=== PATIENT | female | born 1980 | race American Indian/Alaskan Native ===

== ENCOUNTER 2018-01-14 00:25 | Day surgery (SDC) | payer OTHER ==
[~2018-01-14 00:25] MED LIST: ABAT250V; BUME2 PO; CEPH500 PO; CLIN300 PO; FURO40 PO; HYDACE5 PO; HYDCHL25 PO; METO2.5 PO; Micro-K10 MEQ PO; OLME20 PO; RXCLIN PO; SILD25T PO; SULTRIDS PO
== END 2018-01-14 15:57 | disposition home or self-care (01) ==
LOC: WOUND 00:25
PROC: 0JBP0ZZ Excision of Left Lower Leg Subcutaneous Tissue and Fascia, Open Approach (ICD-10-PCS; principal; 2018-01-14)
DX: Z48.00 Encounter for change or removal of nonsurgical wound dressing (principal); L97.221 Non-pressure chronic ulcer of left calf limited to breakdown of skin; S81.809D Unspecified open wound, unspecified lower leg, subsequent encounter; R60.9 Edema, unspecified; I27.20 Pulmonary hypertension, unspecified; E55.9 Vitamin D deficiency, unspecified; I13.0 Hypertensive heart and chronic kidney disease with heart failure and stage 1 through stage 4 chronic kidney disease, or unspecified chronic kidney disease; N18.3 Chronic kidney disease, stage 3 (moderate); I50.9 Heart failure, unspecified; D63.1 Anemia in chronic kidney disease; G60.9 Hereditary and idiopathic neuropathy, unspecified; F17.200 Nicotine dependence, unspecified, uncomplicated; Z88.0 Allergy status to penicillin
CPT/HCPCS: 87070; 87205; G0463

== ENCOUNTER 2018-01-20 00:53 | Day surgery (SDC) | payer OTHER | END 2018-01-20 22:58 | disposition home or self-care (01) | LOC: WOUND 00:53 | PROC: 0HBLXZZ Excision of Left Lower Leg Skin, External Approach (ICD-10-PCS; principal; 2018-01-20) | DX: L97.221 Non-pressure chronic ulcer of left calf limited to breakdown of skin (principal); F17.210 Nicotine dependence, cigarettes, uncomplicated; I13.0 Hypertensive heart and chronic kidney disease with heart failure and stage 1 through stage 4 chronic kidney disease, or unspecified chronic kidney disease; N18.3 Chronic kidney disease, stage 3 (moderate); I50.9 Heart failure, unspecified; I27.20 Pulmonary hypertension, unspecified; E55.9 Vitamin D deficiency, unspecified; D63.1 Anemia in chronic kidney disease | CPT/HCPCS: G0463 ==

== ENCOUNTER 2018-02-01 15:00 | Day surgery (SDC) | payer OTHER | END 2018-02-01 22:50 | disposition home or self-care (01) | LOC: WOUND 15:00 | PROC: 0HBLXZZ Excision of Left Lower Leg Skin, External Approach (ICD-10-PCS; principal; 2018-02-01) | DX: S81.802A Unspecified open wound, left lower leg, initial encounter (principal); I13.0 Hypertensive heart and chronic kidney disease with heart failure and stage 1 through stage 4 chronic kidney disease, or unspecified chronic kidney disease; I50.9 Heart failure, unspecified; R60.9 Edema, unspecified; R06.02 Shortness of breath; N18.3 Chronic kidney disease, stage 3 (moderate); D63.1 Anemia in chronic kidney disease; G60.9 Hereditary and idiopathic neuropathy, unspecified; E87.70 Fluid overload, unspecified; F17.210 Nicotine dependence, cigarettes, uncomplicated | CPT/HCPCS: G0463 ==

== ENCOUNTER 2018-02-10 15:18 | Day surgery (SDC) | payer OTHER | END 2018-02-10 22:47 | disposition home or self-care (01) | LOC: WOUND 15:18 | PROC: 2W1RX6Z Compression of Left Lower Leg using Pressure Dressing (ICD-10-PCS; principal; 2018-02-10) | DX: L97.822 Non-pressure chronic ulcer of other part of left lower leg with fat layer exposed (principal); I87.2 Venous insufficiency (chronic) (peripheral); I27.20 Pulmonary hypertension, unspecified; R60.9 Edema, unspecified; R06.02 Shortness of breath; I12.9 Hypertensive chronic kidney disease with stage 1 through stage 4 chronic kidney disease, or unspecified chronic kidney disease; N18.3 Chronic kidney disease, stage 3 (moderate); D63.1 Anemia in chronic kidney disease; E87.70 Fluid overload, unspecified ==

== ENCOUNTER 2018-02-17 15:05 | Day surgery (SDC) | payer OTHER | END 2018-02-17 16:25 | disposition home or self-care (01) | LOC: WOUND 15:05 | PROC: 2W1RX6Z Compression of Left Lower Leg using Pressure Dressing (ICD-10-PCS; principal; 2018-02-17) | DX: L97.822 Non-pressure chronic ulcer of other part of left lower leg with fat layer exposed (principal); S81.809A Unspecified open wound, unspecified lower leg, initial encounter; I13.0 Hypertensive heart and chronic kidney disease with heart failure and stage 1 through stage 4 chronic kidney disease, or unspecified chronic kidney disease; N18.3 Chronic kidney disease, stage 3 (moderate); I50.9 Heart failure, unspecified; I27.20 Pulmonary hypertension, unspecified; R60.9 Edema, unspecified; R06.02 Shortness of breath; E55.9 Vitamin D deficiency, unspecified; Z72.0 Tobacco use; D63.1 Anemia in chronic kidney disease; E87.70 Fluid overload, unspecified | CPT/HCPCS: G0463 ==

== ENCOUNTER 2018-02-24 15:20 | Day surgery (SDC) | payer OTHER | END 2018-02-24 23:21 | disposition home or self-care (01) | LOC: WOUND 15:20 | PROC: 2W1RX6Z Compression of Left Lower Leg using Pressure Dressing (ICD-10-PCS; principal; 2018-02-24) | PROC: 0HBLXZZ Excision of Left Lower Leg Skin, External Approach (ICD-10-PCS; principal; 2018-02-24) | DX: L97.822 Non-pressure chronic ulcer of other part of left lower leg with fat layer exposed (principal); I13.0 Hypertensive heart and chronic kidney disease with heart failure and stage 1 through stage 4 chronic kidney disease, or unspecified chronic kidney disease; I50.9 Heart failure, unspecified; I27.20 Pulmonary hypertension, unspecified; R60.9 Edema, unspecified; R06.02 Shortness of breath; E55.9 Vitamin D deficiency, unspecified; Z72.0 Tobacco use; N18.3 Chronic kidney disease, stage 3 (moderate); D63.1 Anemia in chronic kidney disease | CPT/HCPCS: G0463 ==

== ENCOUNTER 2018-03-03 00:14 | Day surgery (SDC) | payer OTHER | END 2018-03-03 23:00 | disposition home or self-care (01) | LOC: WOUND 00:14 | PROC: 0HBLXZZ Excision of Left Lower Leg Skin, External Approach (ICD-10-PCS; principal; 2018-03-03) | DX: L97.222 Non-pressure chronic ulcer of left calf with fat layer exposed (principal); I13.0 Hypertensive heart and chronic kidney disease with heart failure and stage 1 through stage 4 chronic kidney disease, or unspecified chronic kidney disease; N18.3 Chronic kidney disease, stage 3 (moderate); R60.9 Edema, unspecified; I27.20 Pulmonary hypertension, unspecified; D63.1 Anemia in chronic kidney disease; I50.9 Heart failure, unspecified | CPT/HCPCS: G0463 ==

== ENCOUNTER 2018-03-10 14:59 | Day surgery (SDC) | payer OTHER | END 2018-03-10 23:13 | disposition home or self-care (01) | LOC: WOUND 14:59 | PROC: 2W1MX6Z Compression of Left Lower Extremity using Pressure Dressing (ICD-10-PCS; principal; 2018-03-10) | DX: L97.222 Non-pressure chronic ulcer of left calf with fat layer exposed (principal); S81.809A Unspecified open wound, unspecified lower leg, initial encounter; I13.0 Hypertensive heart and chronic kidney disease with heart failure and stage 1 through stage 4 chronic kidney disease, or unspecified chronic kidney disease; N18.9 Chronic kidney disease, unspecified; I27.20 Pulmonary hypertension, unspecified; R60.9 Edema, unspecified; R06.02 Shortness of breath; E55.9 Vitamin D deficiency, unspecified; Z72.0 Tobacco use; I50.9 Heart failure, unspecified; D63.1 Anemia in chronic kidney disease | CPT/HCPCS: G0463 ==

== ENCOUNTER 2018-03-17 15:03 | Day surgery (SDC) | payer OTHER | END 2018-03-17 16:27 | disposition home or self-care (01) | LOC: WOUND 15:03 | PROC: 2W1RX6Z Compression of Left Lower Leg using Pressure Dressing (ICD-10-PCS; principal; 2018-03-17) | DX: L97.222 Non-pressure chronic ulcer of left calf with fat layer exposed (principal); I13.0 Hypertensive heart and chronic kidney disease with heart failure and stage 1 through stage 4 chronic kidney disease, or unspecified chronic kidney disease; N18.9 Chronic kidney disease, unspecified; I50.9 Heart failure, unspecified; F17.210 Nicotine dependence, cigarettes, uncomplicated | CPT/HCPCS: G0463 ==

== ENCOUNTER 2018-03-24 15:00 | Day surgery (SDC) | payer OTHER | END 2018-03-24 23:03 | disposition home or self-care (01) | LOC: WOUND 15:00 | PROC: 2W1RX6Z Compression of Left Lower Leg using Pressure Dressing (ICD-10-PCS; principal; 2018-03-24) | DX: S81.802A Unspecified open wound, left lower leg, initial encounter (principal); F17.210 Nicotine dependence, cigarettes, uncomplicated; I13.0 Hypertensive heart and chronic kidney disease with heart failure and stage 1 through stage 4 chronic kidney disease, or unspecified chronic kidney disease; I50.9 Heart failure, unspecified; I27.20 Pulmonary hypertension, unspecified; D63.1 Anemia in chronic kidney disease; N18.3 Chronic kidney disease, stage 3 (moderate) | CPT/HCPCS: G0463 ==

== ENCOUNTER 2018-03-30 07:53 | Day surgery (SDC) | payer OTHER | END 2018-03-30 22:55 | disposition home or self-care (01) | LOC: WOUND 07:53 | PROC: 2W1RX6Z Compression of Left Lower Leg using Pressure Dressing (ICD-10-PCS; principal; 2018-03-30) | DX: L97.222 Non-pressure chronic ulcer of left calf with fat layer exposed (principal); I13.0 Hypertensive heart and chronic kidney disease with heart failure and stage 1 through stage 4 chronic kidney disease, or unspecified chronic kidney disease; I50.9 Heart failure, unspecified; N18.3 Chronic kidney disease, stage 3 (moderate); D63.1 Anemia in chronic kidney disease; I27.20 Pulmonary hypertension, unspecified; E87.70 Fluid overload, unspecified | CPT/HCPCS: G0463 ==

== ENCOUNTER 2018-04-07 15:06 | Day surgery (SDC) | payer OTHER | END 2018-04-07 16:32 | disposition home or self-care (01) | LOC: WOUND 15:06 | PROC: 2W1RX6Z Compression of Left Lower Leg using Pressure Dressing (ICD-10-PCS; principal; 2018-04-07) | DX: S81.802A Unspecified open wound, left lower leg, initial encounter (principal); F17.210 Nicotine dependence, cigarettes, uncomplicated; I13.0 Hypertensive heart and chronic kidney disease with heart failure and stage 1 through stage 4 chronic kidney disease, or unspecified chronic kidney disease; I50.9 Heart failure, unspecified; I27.20 Pulmonary hypertension, unspecified; R60.9 Edema, unspecified; R06.02 Shortness of breath; E55.9 Vitamin D deficiency, unspecified; N18.3 Chronic kidney disease, stage 3 (moderate); D63.1 Anemia in chronic kidney disease | CPT/HCPCS: G0463 ==

== ENCOUNTER 2018-04-15 14:15 | Day surgery (SDC) | payer OTHER | END 2018-04-15 15:21 | disposition home or self-care (01) | LOC: WOUND 14:15 | PROC: 2W1RX6Z Compression of Left Lower Leg using Pressure Dressing (ICD-10-PCS; principal; 2018-04-15) | DX: L97.822 Non-pressure chronic ulcer of other part of left lower leg with fat layer exposed (principal); I13.0 Hypertensive heart and chronic kidney disease with heart failure and stage 1 through stage 4 chronic kidney disease, or unspecified chronic kidney disease; I50.9 Heart failure, unspecified; I27.20 Pulmonary hypertension, unspecified; R60.9 Edema, unspecified; R06.02 Shortness of breath; N18.3 Chronic kidney disease, stage 3 (moderate); D63.1 Anemia in chronic kidney disease | CPT/HCPCS: G0463 ==

== ENCOUNTER 2018-04-22 11:00 | Day surgery (SDC) | payer OTHER | END 2018-04-22 11:59 | disposition home or self-care (01) | LOC: WOUND 11:00 | DX: Z48.00 Encounter for change or removal of nonsurgical wound dressing (principal); S81.802A Unspecified open wound, left lower leg, initial encounter; F17.210 Nicotine dependence, cigarettes, uncomplicated; I13.0 Hypertensive heart and chronic kidney disease with heart failure and stage 1 through stage 4 chronic kidney disease, or unspecified chronic kidney disease; I50.9 Heart failure, unspecified; I27.20 Pulmonary hypertension, unspecified; R60.9 Edema, unspecified; R06.02 Shortness of breath; E55.9 Vitamin D deficiency, unspecified; N18.3 Chronic kidney disease, stage 3 (moderate); G60.9 Hereditary and idiopathic neuropathy, unspecified | CPT/HCPCS: G0463 ==

== ENCOUNTER 2019-09-28 01:01 | Inpatient (IN) | payer OTHER ==
[~2019-09-28] VITALS: Ht 157.5 cm; Wt 70.2 kg
[2019-09-28] MEDS ORDERED: Bumetanide2 MG PO (01:21)
[2019-09-28] MEDS ORDERED: SPIR25 PO (01:22)
[2019-09-28] MEDS ORDERED: CODEINE-GUAIFE120 ML PO (01:23)
[2019-09-28] MEDS ORDERED: GABA100 PO (01:23)
[2019-09-28] MEDS ORDERED: POTCHL20ER PO (01:24)
[2019-09-28] MEDS ORDERED: SILD25T PO (01:25)
[2019-09-28] MEDS ORDERED: THERA-D2000 UNIT PO (01:25)
[2019-09-28 02:04] LABS: Albumin, Blood 3.1 g/dL (3.4-5.0); Albumin/Globulin Ratio 0.6 (0.8-1.8); Bun/Creatinine Ratio 19.9 (12.0-20.0); Calcium, Blood 9.1 mg/dL (8.5-10.1); Creatinine, Blood 1.76 mg/dL (0.40-1.00); Globulin, Blood 4.9 g/dL (2.2-4.0); Potassium, Blood 4.8 mmol/L (3.5-5.5)
[2019-09-28 02:09] LABS: BASOPHILS ABSOLUTE AUTO 0.05 K/mm3 (0.00-0.23); BASOPHILS PERCENT AUTO 0 % (0-2); EOSINOPHILS ABSOLUTE AUTO 0.07 K/mm3 (0.00-0.68); EOSINOPHILS PERCENT AUTO 1 % (0-6); Hematocrit 54.5 % (33.0-51.0); Hemoglobin 17.6 g/dL (11.5-16.0); IMMATURE GRAN ABSOLUTE AUTO 0.13 K/mm3 (0.00-0.10); IMMATURE GRAN PERCENT AUTO 1 % (0-1); LYMPHOCYTES ABSOLUTE AUTO 3.88 K/mm3 (0.84-5.20); LYMPHOCYTES PERCENT AUTO 26 % (21-46); MONOCYTES ABSOLUTE AUTO 1.14 K/mm3 (0.16-1.47); MONOCYTES PERCENT AUTO 8 % (4-13); Mean Corpuscular HGB 30.9 pg (26.0-34.0); Mean Corpuscular HGB Conc 32.3 g/dL (31.5-36.5); Mean Corpuscular Volume 96 fL (80-100); Mean Platelet Volume 10.2 fL (9.1-12.4); NEUTROPHILS ABSOLUTE AUTO 9.85 K/mm3 (1.96-9.15); NEUTROPHILS PERCENT AUTO 65 % (41-73); NRBC ABSOLUTE 0.03 K/mm3 (0.00-0.02); NRBC Auto 0.2 /100 WBC (0.0-0.2); Platelet Count 262 K/mm3 (150-400); RDW Coefficient Variation 14.3 % (11.7-14.2); RDW Standard Deviation 49.3 fL (35.1-46.3); Red Blood Cell Count 5.69 M/mm3 (3.80-5.20); White Blood Cell Count 15.12 K/mm3 (4.00-11.30)
[2019-09-28 02:54] LABS: Influenza A Negative (NEGATIVE); Influenza B Negative (NEGATIVE)
--- NOTE | 2019-09-28 05:00 | NUR ---
ADMIT/ASSESSMENT PT ADMITTED TO ICU 09 VIA ER. ARRIVED VIA GURNEY. TRANSFERED SELF OVER TO BED. DENIES PAIN OR DISCOMFORT. LUNGS CLEAR BUT DECREASED THROUGHOUT ON 4 LITER O2 VIA NC. INCREASED O2 TO 5 LITERS. DAUGHTERS AT BEDSIDE. HEART RATE ELEVATED IN THE 120'S. BP STABLE. NO EDEMA. BT+ ABD SOFT AND NONTENDER. DENIES N/V. IV 20G TO RIGHT AC AND 20G TO LEFT AC SALINE LOCKED. SITES CLEAR. PT ANSWERING QUESTIONS APPORP. MOVING SELF AROUND IN BED. WILL BE STARTING HEPARIN GTT. EXPLAINED TO PT AND FAMILY.
[2019-09-28 05:27] LABS: PCO2 Arterial 28.5 mmHg (35-45); PO2 Arterial 62.5 mmHg (80-100); pH Blood Arterial 7.49 (7.35-7.45)
--- NOTE | 2019-09-28 05:49 | NUR ---
HEPARIN PT RESTING QUIELTY. DAUGHTERS WENT HOME. HEPARIN BOLUS 4400 UNITS GIVE IV THAN HEPARIN GTT STARTED AT 15 UNITS/KG/HR 17.7 ML/HR. NEXT PTT AT 1200.
--- NOTE | 2019-09-28 07:15 | NUR ---
BEGINNING OF SHIFT Assumed care at 0700. Bedside report received from Romi PHOENIX. Pt on 5 LPM NC. Does not wear O2 at home. Sinus tachycardia, rate 120s. Pt sleeping, awakens to verbal stimulus. Follows directions but does not provide much verbal interaction. Bed in lowest position. Call light in reach. Pt denies need at this time.
--- NOTE | 2019-09-28 08:10 | NUR ---
DR SILVER IN TO SEE PT States pt is okay to go to PCU. Addressed HR with provider. Provider states plan to adjust medications. States heparin drip can be stopped. Plan to start antibiotics due to increased WBC count.
[2019-09-28 08:47] LABS: Adenovirus Not Detected (NOT DETECT); Bordetella pertussis Not Detected (NOT DETECT); Chlamydophila pneumoniae Not Detected (NOT DETECT); Coronavirus 229E Not Detected (NOT DETECT); Coronavirus HKU1 Not Detected (NOT DETECT); Coronavirus NL63 Not Detected (NOT DETECT); Coronavirus OC43 Not Detected (NOT DETECT); Human Metapneumovirus Not Detected (NOT DETECT); Human Rhinovirus/Enterovirus Not Detected (NOT DETECT); Influenza A Not Detected (NOT DETECT); Influenza A/2009-H1 Not Detected (NOT DETECT); Influenza A/H1 Not Detected (NOT DETECT); Influenza A/H3 Not Detected (NOT DETECT); Influenza B Not Detected (NOT DETECT); Mycoplasma pneumoniae Not Detected (NOT DETECT); Parainfluenza Virus 1 Not Detected (NOT DETECT); Parainfluenza Virus 2 Not Detected (NOT DETECT); Parainfluenza Virus 3 Not Detected (NOT DETECT); Parainfluenza Virus 4 Not Detected (NOT DETECT); Respiratory Syncytial Virus Not Detected (NOT DETECT)
--- NOTE | 2019-09-28 11:42 | NUR ---
PT TO IMAGING FOR VQ SCAN
--- NOTE | 2019-09-28 13:11 | NUR ---
CALL PLACED TO DR SILVER Notified provider that VQ scan results are back. Provider states D dimer is likely elevated due to renal issues and breathing issues. Provider states starting heparin is not appropriate at this time.
--- NOTE | 2019-09-28 14:27 | NUR ---
Echocardiogram completed.
--- NOTE | 2019-09-28 14:42 | NUR ---
DR BLANCO IN TO SEE PT Pt asked provider to leave and come back later because she is tired. Plan of care discussed with Dr Blanco. Pt to be ICU status. Notified provider of pt's hypotension and medications that pt received. Sildenafil and spironalactone to be held.
--- NOTE | 2019-09-28 15:15 | NUR ---
PLAN OF CARE DISCUSSED PER DR BLANCO Pt to be changed to ICU status for closer monitoring. Provider spoke to pt's outpatient pulmonary hypertension provider. New orders received.
[2019-09-28 16:35] LABS: Base Excess Venous 4.9 mmol/L; Bicarbonate Venous 26.6 mmol/L (24.0-30.0); PCO2 Venous 44.8 mmHg (38-42); PO2 Venous 30.8 mmHg (38-42); pH Blood Venous 7.42 (7.34-7.37)
[2019-09-28 17:25] LABS: Source, Urine Catheter
[2019-09-28 17:36] LABS: Bilirubin, Urine Neg (Neg); Blood, Urine 1+ (Neg); Glucose Qualitative, Urine Neg (Neg); Ketones, Urine Neg (Neg); Leukocyte Esterase, Urine Neg (Neg); Nitrite, Urine Neg (Neg); Protein, Urine 1+ (Neg); Specific Gravity, Urine 1.015 (1.003-1.022); Urobilinogen, Urine 1+ (Normal)
[2019-09-28 17:40] LABS: Appearance, Urine Clear (Clear); Color, Urine Yellow (P-Yellow)
[2019-09-28 17:46] LABS: White Blood Cells, Urine 0-2 /hpf (0-5)
[2019-09-28 17:47] LABS: Bacteria Few /hpf; Red Blood Cells, Urine 0-2 /hpf (0-2); Squamous Epithelial Cells Many /hpf (Few)
[2019-09-28 17:48] LABS: U Amphetamine Screen DETECTED; U Barbituate Screen Not Detected; U Benzodiazapine Screen Not Detected; U Buprenorphine Screen Not Detected; U Cannabinoids Screen Not Detected; U Cocaine Screen Not Detected; U Methadone Screen Not Detected; U Methamphetamine Screen DETECTED; U Opiates Screen DETECTED; U Oxycodone Screen Not Detected; U Phencyclidine Screen Not Detected; U Propoxyphene Screen Not Detected
--- NOTE | 2019-09-28 18:09 | NUR ---
SUMMARY Pt A&O x 4. Pt has been lethargic for entire shift. Pt awakens to gentle verbal stimulus and often nods head or uses one word to answer questions, keeping eyes closed. Pt OOB several times this shift to use toilet. Pt weak, but otherwise tolerates activity well. Pt remains on 5 LPM NC. SpO2 90-92%. Pt has an unproductive cough, therefore sputum sample has not been obtained. No visitors have been in to see pt this shift, however pt's daughter Kobe called to receive an update. Ureña catheter placed for strict measurement of fluid intake and output. Urinalysis and tox screen sent.
--- NOTE | 2019-09-28 19:57 | NUR ---
START OF SHIFT: REPORT FROM RUSSEL RN. PT LYING IN BED SLEEPING BUT AWAKENS TO RNS AT BEDSIDE. PT DENIED CP, NAUSEA, OR ARM/NECK DISCOMFORTS. PT ONLY REQUEST WAS SOMETHING FOR SLEEP. PT ALERT TO PERSON, PLACE, AND TIME. LS DIMINSHED L SIDE T/O, RIGHT CLEAR BUT DIMINISHED. MONITORING BP Q15 min, DOBUTAMINE gtt TO BE STARTED AT 2.5mcg/kg/min WHEN SBP AT OR <80(NOTED), CURRENT SBP LOW 80'S. HR 70'S-110, PT O2 INCREASED TO 6L VIA N/C FOR SATS >92%. PT SKIN SLIGHTLY DUSKY BUT WARM AND DRY. PT WITH FRIENDS AND FAMILY AT BEDSIDE AND WERE UPDATED. PT FRIEND INQURIED RE: PT HAD REQUESTED A POLST AT A PRIOR DOCTOR VISIT. PT VERIFIED THAT AT THIS TIME WANTS FULL TREATMENT. DR. BLANCO IN DEPT PRIOR TO LEAVING AND GAVE VERBAL ORDER FOR MELATONIN 5mg PO AT BEDTIME. WILL CONTINUE TO MONITOR, PT REMAINS ON Q15' VITALS. CALL CHUN BURDEN.
--- NOTE | 2019-09-29 01:47 | NUR ---
DOBUTAMINE STARTED AT 0106 AT 2.5 mcg/kg/min. PT DENIES EVER VAPIING.
[2019-09-29 04:38] LABS: BASOPHILS ABSOLUTE AUTO 0.04 K/mm3 (0.00-0.23); BASOPHILS PERCENT AUTO 0 % (0-2); EOSINOPHILS ABSOLUTE AUTO 0.03 K/mm3 (0.00-0.68); EOSINOPHILS PERCENT AUTO 0 % (0-6); Hematocrit 49.6 % (33.0-51.0); Hemoglobin 16.1 g/dL (11.5-16.0); IMMATURE GRAN ABSOLUTE AUTO 0.05 K/mm3 (0.00-0.10); IMMATURE GRAN PERCENT AUTO 0 % (0-1); LYMPHOCYTES ABSOLUTE AUTO 3.17 K/mm3 (0.84-5.20); LYMPHOCYTES PERCENT AUTO 22 % (21-46); MONOCYTES ABSOLUTE AUTO 0.91 K/mm3 (0.16-1.47); MONOCYTES PERCENT AUTO 6 % (4-13); Mean Corpuscular HGB Conc 32.5 g/dL (31.5-36.5); Mean Corpuscular Volume 95 fL (80-100); Mean Platelet Volume 9.9 fL (9.1-12.4); NEUTROPHILS ABSOLUTE AUTO 10.48 K/mm3 (1.96-9.15); NEUTROPHILS PERCENT AUTO 71 % (41-73); Platelet Count 219 K/mm3 (150-400); RDW Coefficient Variation 14.4 % (11.7-14.2); RDW Standard Deviation 49.1 fL (35.1-46.3); White Blood Cell Count 14.68 K/mm3 (4.00-11.30)
[2019-09-29 04:56] LABS: Albumin, Blood 2.6 g/dL (3.4-5.0); Albumin/Globulin Ratio 0.6 (0.8-1.8); Bilirubin, Total 1.2 mg/dL (0.1-1.0); Bun/Creatinine Ratio 27.2 (12.0-20.0); Creatinine, Blood 1.51 mg/dL (0.40-1.00); Globulin, Blood 4.3 g/dL (2.2-4.0); Potassium, Blood 4.4 mmol/L (3.5-5.5); Total Protein, Blood 6.9 g/dL (6.4-8.2)
--- NOTE | 2019-09-29 06:10 | NUR ---
SHIFT SUMMARY: PT RESTED T/O NOC, AWAKENING USING CALL LIGHT A FEW TIMES. DOBUTAMINE STARTED AND RAN FOR ONLY A FEW HOURS FOR WHEN PT'S BP DOWN BELOW 80 SYSTOLIC-SEE FLOW SHEET. PT CURRENTLY ON 7L O2 TO KEEP SATS >92%, OTHERWISE, PT WITH NO C/O CP, NAUSEA, OR ANY OTHER DISCOMFORTS. PT ONLY REQUEST T/O NOC WAS TO HAVE DOOR CLOSED.
--- NOTE | 2019-09-29 08:36 | NUR ---
ASSUMED CARE PT. AWAKENS TO VERBAL STIMULI, REQUESTS TO CONTINUE TO SLEEP. BREAKFAST OFFERED PT. REQUESTED IT BE HELD AT THIS TIME. PT. REMAINS ON 7L O2 HIGH FLOW NC. DRY COUGH NOTED. DIMINISHED LUNG SOUNDS ON THE LEFT. HR LOW 100S MURMER NOTED UPON CARDIAC AUSCULTATION. PT. DENIES ANY CHEST PAIN OR PRESSURE THIS AM. HEPARIN GTT CONTINUES INFUSING AND DOBUTAMINE ON STAND BY AT BEDSIDE FOR HYPOTENSION. PT. TOOK ORAL MEDICATIONS WITH OUT DIFFICULTY. ABLE TO REPOSITION SELF IN BED FOR COMFORT. CHANEY TEMP PROBE IN PLACE WITH TEMP OF 99.0 NOTED, DRAINING TO GRAVITY, YELLOW URINE. CALL LIGHT IN REACH.
--- NOTE | 2019-09-29 10:41 | NUR ---
DR. BLANCO IN TO ASSESS PT.
[2019-09-29 12:06] LABS: Base Excess Venous 4.4 mmol/L; Bicarbonate Venous 26.8 mmol/L (24.0-30.0); PCO2 Venous 43.9 mmHg (38-42); PO2 Venous 37.7 mmHg (38-42); pH Blood Venous 7.43 (7.34-7.37)
--- NOTE | 2019-09-29 12:31 | NUR ---
LUNCH PT. SAT UP IN BED TO EAT LUNCH. PT CONSUMED 100% OF HER LUNCH TRAY, REMAINS ON 7LNC. VSS. CALL LIGHT IN REACH.
--- NOTE | 2019-09-29 16:54 | NUR ---
OCCASIONAL LOW BPS DISCUSSED WITH DR. BLANCO. MAP REMAINS >65, PLANS FOR RESTARTING DOBUTAMINE IF SUSTAINED HYPOTENSION, OR MAPS <65.
--- NOTE | 2019-09-29 16:55 | NUR ---
DOBUTAMINE GTT RESTARTED AT 2.5 MCG/KG/MIN.
--- NOTE | 2019-09-29 17:58 | NUR ---
SHIFT SUMMARY PT. REMAINS SLEEPING T/O SHIFT. PT AWAKENS EASILY TO VERBAL STIMULI. DENIES ANY CHEST PAIN/PRESSURE T/O SHIFT. REMAINS ON 7LNC T/O SHIFT. PT. UP ONE TIME TO BEDSIDE TOILET FOR BM. REFUSED BATH OFFERS MULTIPLE TIMES TODAY REQUESTING TO SLEEP. PT SYSTOLIC IN THE 80S FREQUENTLY T/O SHIFT HOWEVER MAINTAINING MAP >65, DISCUSSED WITH DR. BLANCO. AFTER NO IMPROVEMENT DOBUTAMINE GTT RESTARTED AT 2.5MCG/KG/MIN. PT CONTINUES WITH DRY COUGH NON PRODUCTIVE T/O SHIFT. CALL LIGHT IN REACH. REPORT TO ONCOMING RN.
--- NOTE | 2019-09-29 20:12 | NUR ---
ASSUMPTION OF CARE: PT IS ORIENTED BUT DROWSY. PT SP02 >90% ON 7L NC. LEFT SIDE LUNG SOUNDS DIM, RIGHT SIDE IS CLEAR AND DIM IN BASES. PT IS IN ST WITH HR IN 110S. SBP IN THE 90S-100S. BOWEL TONES PRESENT . TEMP CHANEY IN PLACE DRAINING CLEAR YELLOW URINE. PT HAS PICC IN PLACE IN CARLEEN INFUSING WITH HEPARIN AND DOBUTAMINE. PT CURRENTLY RESTING COMFORTABLY.
[2019-09-30 04:43] LABS: BASOPHILS ABSOLUTE AUTO 0.03 K/mm3 (0.00-0.23); BASOPHILS PERCENT AUTO 0 % (0-2); EOSINOPHILS ABSOLUTE AUTO 0.04 K/mm3 (0.00-0.68); EOSINOPHILS PERCENT AUTO 0 % (0-6); Hematocrit 46.7 % (33.0-51.0); Hemoglobin 15.6 g/dL (11.5-16.0); IMMATURE GRAN ABSOLUTE AUTO 0.06 K/mm3 (0.00-0.10); IMMATURE GRAN PERCENT AUTO 1 % (0-1); LYMPHOCYTES ABSOLUTE AUTO 2.82 K/mm3 (0.84-5.20); LYMPHOCYTES PERCENT AUTO 26 % (21-46); MONOCYTES ABSOLUTE AUTO 0.78 K/mm3 (0.16-1.47); MONOCYTES PERCENT AUTO 7 % (4-13); Mean Corpuscular HGB 31.8 pg (26.0-34.0); Mean Corpuscular HGB Conc 33.4 g/dL (31.5-36.5); Mean Corpuscular Volume 95 fL (80-100); Mean Platelet Volume 9.6 fL (9.1-12.4); NEUTROPHILS ABSOLUTE AUTO 7.15 K/mm3 (1.96-9.15); NEUTROPHILS PERCENT AUTO 66 % (41-73); Platelet Count 201 K/mm3 (150-400); RDW Coefficient Variation 14.4 % (11.7-14.2); RDW Standard Deviation 48.7 fL (35.1-46.3); Red Blood Cell Count 4.91 M/mm3 (3.80-5.20); White Blood Cell Count 10.88 K/mm3 (4.00-11.30)
[2019-09-30 04:45] LABS: Base Excess Venous 4.3 mmol/L; Bicarbonate Venous 26.9 mmol/L (24.0-30.0); PO2 Venous 36.9 mmHg (38-42)
[2019-09-30 04:54] LABS: pH Blood Venous 7.44 (7.34-7.37)
[2019-09-30 05:01] LABS: Bun/Creatinine Ratio 28.9 (12.0-20.0); Creatinine, Blood 1.42 mg/dL (0.40-1.00); Potassium, Blood 4.5 mmol/L (3.5-5.5)
--- NOTE | 2019-09-30 06:10 | NUR ---
SHIFT SUMMARY: PT ORIENTED BUT DROWSY. IS ABLE TO AROUSE TO NAME. L SIDE LUNG SOUNDS DIM, R SIDE CLEAR. SP02 >90% ON 7L NC. PT IN ST, HR IN THE 100-120S, SBP 90-100S. BOWEL TONES PRESENT. NO BM THIS SHIFT. TEMP CHANEY IN PLACE DRAINING CLEAR YELLOW URINE. PT HAS PICC IN CARLEEN INFUSING WITH DOBUTAMINE AT 5MCG AND HEPARIN AT 19 UNITS. PT HAS BEEN RESTING ALL NIGHT
--- NOTE | 2019-09-30 07:59 | NUR ---
PT AWAKE SITTING WITH LEGS CROSSED IN BED AND HUNCHED OVER. PT DENIES C/O PAIN, STATES SHE IS TIRED, DENIES SOB AT MOMENT BUT APPEARS SOB W EXERTION. PT HR 90-130 DEPENDING ON EXERTION. BP STABLE ON DOBUTAMINE AT 5MCG, WILL TITRATE DOWN TOLERTAED. HEPARIN GTT INFUSING AT 19UNITS PER PHARMACY. LUNGS DIMINISHED TO ABSENT IN BASES, LOUD SYSTOLIC MURMUR NOTED. DR BLANCO HAS SEEN PT THIS AM.
--- NOTE | 2019-09-30 08:31 | NUR ---
DOBUTAMINE DECREASED TO 2.5MCG; BP STABLE. O2 DECREASED TO 4L. PT DROWSY FALLS ASLEEP IN BETWEEN QUESTIONS; POOR APPETITE.
[2019-09-30 16:23] LABS: Magnesium, Blood 2.2 mg/dL (1.6-2.4); Phosphorus, Blood 4.6 mg/dL (2.5-4.9); Potassium, Blood 4.6 mmol/L (3.5-5.5)
--- NOTE | 2019-09-30 16:59 | NUR ---
DOBUTAMINE INCREASED TO 5MCG AT [address] BLANCO NOTIFIED. EKG ORDERED AND COMPLETED TO R/O AFLUTTER; EKG SHOWS SINUS TACH. K+,PHOS AND MAG ORDERED; ALL WNL. PT REMAINS VERY LETHARGIC, SLEEPING MOST OF SHIFT EXCEPT TO EAT A SMALL AMT OF MEALS. BATH OFFERED, PT DECLINED FOR NOW, STATES MAYBE LATER. HEPARIN GTT REMAINS AT 19UNITS.
--- NOTE | 2019-09-30 21:21 | NUR ---
ASSUMPTION OF CARE: PT ALERT AND ORIENTED. REMAINS DROWSY THIS EVENING. LUNG SOUNDS VERY DIM AT L SIDE. R SIDE CLEAR AND DIM IN BASES. PT IS IN ST WITH HR IN THE 110S. SBP CURRENTLY STABLE IN THE 90S. TEMP CHANEY IN PLACE DRAINING CLEAR YELLOW URINE. PT HAS PICC IN PLACE TO CARLEEN INFUSING WITH HEPARIN AT 19 UNITS AND DOBUTAMINE AT 5MCG. PT CURRENTLY RESTING. WILL CONTINUE TO MONITOR
[2019-10-01 03:19] LABS: BASOPHILS ABSOLUTE AUTO 0.04 K/mm3 (0.00-0.23); BASOPHILS PERCENT AUTO 0 % (0-2); EOSINOPHILS ABSOLUTE AUTO 0.05 K/mm3 (0.00-0.68); EOSINOPHILS PERCENT AUTO 1 % (0-6); Hematocrit 46.1 % (33.0-51.0); Hemoglobin 15.1 g/dL (11.5-16.0); IMMATURE GRAN ABSOLUTE AUTO 0.05 K/mm3 (0.00-0.10); IMMATURE GRAN PERCENT AUTO 1 % (0-1); LYMPHOCYTES ABSOLUTE AUTO 2.79 K/mm3 (0.84-5.20); LYMPHOCYTES PERCENT AUTO 28 % (21-46); MONOCYTES ABSOLUTE AUTO 0.81 K/mm3 (0.16-1.47); MONOCYTES PERCENT AUTO 8 % (4-13); Mean Corpuscular HGB 30.9 pg (26.0-34.0); Mean Corpuscular HGB Conc 32.8 g/dL (31.5-36.5); Mean Corpuscular Volume 95 fL (80-100); Mean Platelet Volume 9.9 fL (9.1-12.4); NEUTROPHILS ABSOLUTE AUTO 6.27 K/mm3 (1.96-9.15); NEUTROPHILS PERCENT AUTO 63 % (41-73); Platelet Count 204 K/mm3 (150-400); RDW Coefficient Variation 14.8 % (11.7-14.2); RDW Standard Deviation 48.3 fL (35.1-46.3); Red Blood Cell Count 4.88 M/mm3 (3.80-5.20); White Blood Cell Count 10.01 K/mm3 (4.00-11.30)
[2019-10-01 03:34] LABS: Bun/Creatinine Ratio 23.5 (12.0-20.0); Calcium, Blood 9.1 mg/dL (8.5-10.1); Creatinine, Blood 1.36 mg/dL (0.40-1.00); Magnesium, Blood 2.2 mg/dL (1.6-2.4); Potassium, Blood 4.6 mmol/L (3.5-5.5)
[2019-10-01 04:58] LABS: PCO2 Arterial 33.3 mmHg (35-45); PO2 Arterial 61.1 mmHg (80-100); pH Blood Arterial 7.49 (7.35-7.45)
--- NOTE | 2019-10-01 05:41 | NUR ---
SHIFT SUMMARY: PT A & O BUT DROWSY. L SIDE LUNG SOUNDS DIM AND WHEEZY. CURRENTLY ON 7L NC SPO2>90%. PT HAS NON-PRODUCTIVE, DRY COUGH PT REMAINS IN ST, HR IN THE 100S, SBP STABLE IN THE 90S. TEMP CHANEY IN PLACE DRAINING CLEAR DARK URINE. PICC TO CARLEEN INFUSING WITH HEPARIN 19U/HR AND DOBUTAMINE 5 MCG.
[2019-10-01 05:42] LABS: Bicarbonate Venous 26.5 mmol/L (24.0-30.0); PCO2 Venous 44.2 mmHg (38-42); PO2 Venous 37.4 mmHg (38-42); pH Blood Venous 7.42 (7.34-7.37)
--- NOTE | 2019-10-01 07:44 | NUR ---
ASSUMED CARE: PT RESTING IN BED, WAKES EASILY, BUT CLOSES HER EYES SOON INTERACTION ENDS. DOBUTAMINE AND HEPARIN INFUSING, SEE FLOWSHEET. SBP 90S AND MAP 70-80S, WILL TITRATE DOWN ABLE. DR. SILVER AT THE BEDSIDE FOR ROUNDS AND NOW NAN WHIPPLE IN ROOM DOING PARTIAL ECHO THIS AM. NO REQUESTS FROM PT AT THIS TIME. CONTINUE TO MONITOR.
--- NOTE | 2019-10-01 10:27 | NUR ---
Echocardiogram completed.
--- NOTE | 2019-10-01 12:11 | NUR ---
REASSESSMENT: PT HAS BEEN SLEEPING THROUGHOUT THE MORNING. SHE REFUSED SEVERAL OFFERS TO GET OUT OF BED OR TAKE A BATH. WILL TRY AGAIN AFTER LUNCH. DOBUTAMINE AND HEPARIN INFUSING AT THE SAME RATES, SEE FLOWSHEET. UNABLE TO TITRATE DOBUTAMINE DOWN SO FAR. OXYGEN TITRATED DOWN TO 5L/NC CURRENTLY. EDUCATION PROVIDED TO PT ON NEED TO MOVE TO HELP PULMONARY STATUS. INCENTIVE SPIROMETER AT THE BEDSIDE AND ENCOURAGED PT TO USE IT HOURLY. NO OTHER REQUESTS FROM PT AT THIS TIME.
--- NOTE | 2019-10-01 16:14 | NUR ---
SHIFT SUMMARY: PT SPENT THE DAY IN BED WITH HER EYES CLOSED RESTING. SHE GOT UP ONCE TO THE CHAIR DURING HER BATH FOR ABOUT 10 MINUTES, BUT THEN WANTED TO GET BACK IN BED. HER LUNGS REMAIN CLEAR, DIM IN THE BASES AND SHE HAS A DRY, HACKING COUGH. HEPARIN INFUSING PER PHARMACY. DOBUTAMINE STILL INFUSING AT SAME RATE THIS MORNING BP REMAINS WITH SBP INT HE 80S AND 90S AND MAP IN THE [address] BLANCO AWARE OF BPS. OXYGEN TITRATED DOWN TO 3L/NC NOW WITH SPO2 94%. PT ONLY ATE 5-10% OF HER MEALS TODAY. CHANEY WITH CL YELLOW URINE AND 1200ML OUT. PT HAD A FRIEND IN THE ROOM FOR MOST OF THE AFTERNOON BUT SHE WOULDN'T EVEN STAY AWAKE TO INTERACT WITH HIM. PT'S CHLOE CALLED AND WAS GIVEN UPDATE.
--- NOTE | 2019-10-01 20:41 | NUR ---
ASSUMED CARE OF PT, REPORT RCV'D FROM STEFFI Dc RN. PT SLEEPING, AWAKES TO VERBAL STIMULI, ASSISTS WITH CARE AND FOLLOWS DIRECTIONS THEN QUICKLY FALLS BACK TO SLEEP. HEPARIN GTT @ 19 U/KG/HR, MANAGED BY PHARMACY. PT ON DOBUTAMINE GTT @ 5 MCG/KG/MIN TO CORRECT HYPOTENSION. LUNG SOUNDS CLEAR T/O WITH DIM BASES, PT ON 3L NC TO MAINTAIN SATS>90%. TEMP CHANEY DRAINING PALE YELLOW URINE. PT DENIES NEEDS AT THIS TIME. SEE FULL SHIFT ASSESSMENT.
[2019-10-02 03:39] LABS: BASOPHILS ABSOLUTE AUTO 0.04 K/mm3 (0.00-0.23); BASOPHILS PERCENT AUTO 0 % (0-2); EOSINOPHILS ABSOLUTE AUTO 0.06 K/mm3 (0.00-0.68); EOSINOPHILS PERCENT AUTO 1 % (0-6); Hematocrit 45.7 % (33.0-51.0); IMMATURE GRAN ABSOLUTE AUTO 0.06 K/mm3 (0.00-0.10); IMMATURE GRAN PERCENT AUTO 1 % (0-1); LYMPHOCYTES ABSOLUTE AUTO 2.72 K/mm3 (0.84-5.20); LYMPHOCYTES PERCENT AUTO 29 % (21-46); MONOCYTES ABSOLUTE AUTO 0.82 K/mm3 (0.16-1.47); MONOCYTES PERCENT AUTO 9 % (4-13); Mean Corpuscular HGB 31.3 pg (26.0-34.0); Mean Corpuscular HGB Conc 32.8 g/dL (31.5-36.5); Mean Corpuscular Volume 95 fL (80-100); Mean Platelet Volume 9.6 fL (9.1-12.4); NEUTROPHILS ABSOLUTE AUTO 5.55 K/mm3 (1.96-9.15); NEUTROPHILS PERCENT AUTO 60 % (41-73); Platelet Count 194 K/mm3 (150-400); RDW Coefficient Variation 14.6 % (11.7-14.2); RDW Standard Deviation 48.8 fL (35.1-46.3); White Blood Cell Count 9.25 K/mm3 (4.00-11.30)
[2019-10-02 03:45] LABS: Base Excess Venous 4.2 mmol/L; Bicarbonate Venous 26.9 mmol/L (24.0-30.0); PCO2 Venous 42.9 mmHg (38-42); PO2 Venous 37.5 mmHg (38-42); pH Blood Venous 7.43 (7.34-7.37)
[2019-10-02 03:55] LABS: Magnesium, Blood 2.3 mg/dL (1.6-2.4)
[2019-10-02 03:56] LABS: Bun/Creatinine Ratio 22.2 (12.0-20.0); Calcium, Blood 9.2 mg/dL (8.5-10.1); Creatinine, Blood 1.26 mg/dL (0.40-1.00); Phosphorus, Blood 4.5 mg/dL (2.5-4.9); Potassium, Blood 4.4 mmol/L (3.5-5.5)
--- NOTE | 2019-10-02 06:02 | NUR ---
SHIFT SUMMARY NO ACUTE CHANGES OVERNIGHT. PT REMAINS ON HEPARIN 19 U/KG/HR, NEXT APTT SCHEDULED FOR 1200. DOBUTAMINE 5 MCG/KG/MIN, EFFORTS TO DECREASE DOBUTAMINE INFUSION RESULTED IN HYPOTENSION AND SBP<80. PT ON 3L NC WITH 02 SATS 90-94%. SPP 80-101, HR 79-111. PT HAD 1000 ML CLEAR YELLOW URINE FROM CATHETER. PT AWAKE FOR APPROXIMATELY 15 MINS DURING MANAGEMENT SME WHERE SHE ATE ANGELIKA CRACKERS AND MILK AND THE PROMPTLY FELL BACK TO SLEEP. PT CONTINUES TO AWAKEN TO VERBAL STIMULI, COOPERATES WITH CARE BUT REMAINS VERY DROWSY AND APPEARS WITHDRAWN AND EASILY IRRITABLE. WILL REPORT TO DAYSHIFT NURSE.
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
--- NOTE | 2019-10-02 09:15 | NUR ---
AM ASSESS REVIEW PT RESTING IN BED, REPOSITIONS SELF FOR COMFORT. PT OPENS EYES TO VOICE, A&OX4, DENIES PAIN/DISCOMFORT. HEART RATE 80-90s WITH NO CHANGE IN RHYTHYM OF NSR. LUNGS CLEAR IN UPPER LOBES AND DIMINISHED BILAT BASES, O2 @3L/NC WITH SATS >90s. BS PRESENT. TEMP CHANEY IN PLACE R/T STRICT I&Os WITH CLEAR YELLOW URINE. SKIN WNL. PICC IN LT AC WITH HEPARIN DRIP AT 19U/KG/HR AND DOBUTAMINE AT 5 INFUSING WITHOUT DIFFICULTY. PT TOOK AM MEDS /S DIFFICULTY. PT ATE 50% BREAKFAST. BED LOW POSITION, CALL LIGHT & TABLE IN REACH, WILL CONTINUE TO MONITOR PT.
--- NOTE | 2019-10-02 13:15 | NUR ---
MIDSHIFT REPORT PT CONTINUES TO REST IN BED, AWARE OF NEED TO TRANSFER TO [facility] ONLY FOR MEDICATION NEEDS. PT REMAINS STABLE. PT DID CALL DAUGHTER, MARLA, TO UPDATE ON NEED FOR TRANSFER. PT SAT UP IN BED TO EAT LUNCH. HEART RATE REMAINS IN 90s, LUNGS CTA WITH DIM BASES AND O2 @ 3L/NC, BS PRESENT, URINE CLEAR YELLOW IN CHANEY TEMP CATH. SKIN REMAINS WNL. TABLE AND CALL LIGHT IN REACH, BED IN LOW POSITION, AND WILL CONTINUE TO MONITOR. PTT RESULTS RECEIVED AND WILL CONTINUE HEPARIN AT SAME RATE OF 19U/KG/HR.
--- NOTE | 2019-10-02 18:00 | NUR ---
END SHIFT SUMMARY PT CONTINUES TO REST IN BED, REPOSITIONS SELF FOR COMFORT, DENIES PAIN. PT A&O, PLEASANT. PT SAT UP IN BED FOR MEALS, TALKED WITH VISITORS TODAY. PT UNDERSTANDS WILL TRANSFER TO [facility] WHEN BED AVAILABLE. PT REMAINS ON HEART MONITOR WITH NSR AND RATE 90-100s, SBP 90-100s THIS SHIFT. LUNGS CLEAR BILAT UPPER LOBES AND DIMINISHED BILAT LOWER LOBES, O2 REMAINS AT 3L/NC. BT PRESENT, NO BM TODAY. SKIN WNL AND STRENGTH IMPROVING THROUGHOUT THE DAY. PICC LINE IN LT AC WITH HEPARIN INFUSING @ 19 U/KG/HR AND DOBUTAMINE @ 5 mcg/kg/min. BED LOW POSITION, CALL LIGHT AND BEDSIDE TABLE IN REACH, WILL CONTINUE TO MONITOR. BEDSIDE REPORT TO ONCOMING SHIFT.
--- NOTE | 2019-10-02 21:00 | NUR ---
ASSUMED PT CARE 1899 AFTER BEDSIDE REPORT & IV DRIP VERIFICATION. PT GENERALLY HAS BEEN LAYING IN BED, HAS FLAT AFFECT. RESPONDS TO QUESTIONS, DENIES SOB, CO "PAIN L SIDE" LIKE A MUSCLE CRAMP. REQUESTS MASSAGE. PROVIDED TO PT W RELIEF. O2 3LNC, MONITOR SHOWS ST W RATE 100, NO ECTOPY. HEPARIN INFUSING 19U/KG/HR=22.4ML/HR. DOBUTAMINE 5MCG/KG/HR=21.6ML/HR. SHIV DRAISLINN CL YELLOW, MODERATE AMT NOTED. TO MEDS WO DIFFICULTY, SPRITE GIVEN PER REQUEST. CALL LIGHT IN REACH. PLAN FOR PT TO TRANSFER TO [facility], AWAIT BED ASSIGNMENT.
--- NOTE | 2019-10-03 01:00 | NUR ---
REPORT CALLED TO RICKEY BADILLO RN, AT [facility] MEDICAL ICU. PT SIGNED TRANSFER PAPERWORK, & PACKAGED AWAITING TRASPORT. WILL CONT TO MONITOR.
--- NOTE | 2019-10-03 01:55 | NUR ---
PT OUT THE DOOR W [facility], HEPARIN & DOBUTAMINE TRANSFERED TO [facility]. PT BELONGINGS W PT.
== END 2019-10-03 01:52 | disposition short-term general hospital (02) | DRG 175 ==
LOC: ER 01:01 → ICUW 04:45 → ICUE 09-29 16:28
PROVIDERS: Emergency Medicine; Internal Medicine Critical Care Medicine; ADMIT Family Medicine
PROC: 02HV33Z Insertion of Infusion Device into Superior Vena Cava, Percutaneous Approach (ICD-10-PCS; principal; 2019-09-28)
PROC: 4A02X4A Measurement of Cardiac Electrical Activity, Guidance, External Approach (ICD-10-PCS; 2019-09-28)
DX: I26.09 Other pulmonary embolism with acute cor pulmonale (principal); R57.0 Cardiogenic shock; J96.01 Acute respiratory failure with hypoxia; I27.29 Other secondary pulmonary hypertension; F15.10 Other stimulant abuse, uncomplicated; Z87.891 Personal history of nicotine dependence; N18.3 Chronic kidney disease, stage 3 (moderate)
CPT/HCPCS: 0099U; 36415; 36569; 36600; 51702; 71045; 71046; 78582; 80048; 80053; 81001; 82803; 83735; 83880; 84100; 84132; 84484; 85025; 85379; 85730; 87804; 93005; 93010; 93306; 93308; 93321; 99285-25; A9540; A9558; C1751; J1250; J1644; J1956

== ENCOUNTER → 2022-11-24 | Outpatient (CLI) | payer OTHER ==
[~2022-11-24] MED LIST changes: +Bumetanide2 MG PO; +CODEINE-GUAIFE120 ML PO; +GABA100 PO; +POTCHL20ER PO; +SPIR25 PO; +THERA-D2000 UNIT PO
[2022-11-26 15:08] LABS: CHLAMYDIA BY NAA Negative (Negative); GONOCOCCUS BY NAA Negative (Negative); TRICH VAG BY NAA Negative (Negative)
== END | disposition home or self-care (01) ==
LOC: LAB 14:00 → LAB SHORT 14:00
PROVIDERS: Registered Nurse Community Health
DX: Z20.2 Contact with and (suspected) exposure to infections with a predominantly sexual mode of transmission (principal)
CPT/HCPCS: 87491; 87591; 87661

== ENCOUNTER 2023-10-04 09:28 | Emergency (ER) | payer OTHER ==
[~2023-10-04] VITALS: Ht 157.5 cm; Wt 70.3 kg
[2023-10-04 09:33] VITALS: BP 134/87
== END 2023-10-04 10:36 | disposition home or self-care (01) ==
LOC: ER 09:28
DX: S00.03XA Contusion of scalp, initial encounter (principal); S00.83XA Contusion of other part of head, initial encounter; V89.2XXA Person injured in unspecified motor-vehicle accident, traffic, initial encounter; N18.30 Chronic kidney disease, stage 3 unspecified; F17.200 Nicotine dependence, unspecified, uncomplicated; Z88.0 Allergy status to penicillin; Z79.899 Other long term (current) drug therapy
CPT/HCPCS: 70450; 99283-25; Q9967

== ENCOUNTER → 2023-10-14 | Outpatient (CLI) | payer OTHER ==
[2023-10-17 16:20] LABS: APTIMA MEDIA TYPE MultiTest Swab; C. TRACHOMATIS BY TMA Negative (Negative); N. GONORRHOEAE BY TMA Negative (Negative); SPECIMEN SOURCE Vaginal; T. VAGINALIS BY TMA Negative (Negative)
== END ==
LOC: LAB SHORT 09:30 → LAB 09:30
PROVIDERS: Registered Nurse Community Health
DX: Z11.3 Encounter for screening for infections with a predominantly sexual mode of transmission (principal); Z20.2 Contact with and (suspected) exposure to infections with a predominantly sexual mode of transmission
CPT/HCPCS: 87491; 87591; 87661

== ENCOUNTER → 2024-09-13 | Outpatient (CLI) | payer OTHER ==
[2024-09-13 21:07] LABS: Candida Group, PCR NOT DETECTED (NOT DETECT); Candida glabrata-krusei, PCR NOT DETECTED (NOT DETECT)
[2024-09-13 21:08] LABS: Bacterial Vaginosis PCR Positive (NEGATIVE)
== END ==
LOC: LAB SHORT 16:39 → LAB 16:39
PROVIDERS: Registered Nurse Community Health
DX: N89.8 Other specified noninflammatory disorders of vagina (principal); R30.0 Dysuria
CPT/HCPCS: 87070; 87086; 87205; 87481; 87661; 87801

== ENCOUNTER → 2024-10-31 | Outpatient (CLI) | payer OTHER ==
[2024-11-02 14:15] LABS: HEPATITIS B SURFACE ANTIGEN Negative (Negative)
[2024-11-02 15:26] LABS: HIV 1,2 COMBO ANTIGEN/ANTIBODY Negative (Negative)
[2024-11-02 15:52] LABS: HEPATITIS C AB CIA INTERP Negative (Negative); HEPATITIS C ANTIBODY CIA INDEX <0.02 IV
[2024-11-03 12:04] LABS: APTIMA MEDIA TYPE Urine; C. TRACHOMATIS BY TMA Negative (Negative); N. GONORRHOEAE BY TMA Negative (Negative); SPECIMEN SOURCE Urine; T. VAGINALIS BY TMA Negative (Negative)
== END ==
LOC: LAB 16:44 → LAB SHORT 16:44
PROVIDERS: Registered Nurse Community Health
DX: Z11.3 Encounter for screening for infections with a predominantly sexual mode of transmission (principal); Z20.2 Contact with and (suspected) exposure to infections with a predominantly sexual mode of transmission
CPT/HCPCS: 86592; 86803; 87340; 87389; 87491; 87591; 87661

== ENCOUNTER 2024-11-12 12:10 | Emergency (ER) | payer OTHER ==
[~2024-11-12] VITALS: Ht 157.5 cm; Wt 68.0 kg
[2024-11-12 12:19] VITALS: BP 131/72
== END 2024-11-12 12:57 | disposition home or self-care (01) ==
LOC: ER 12:10
DX: S09.90XA Unspecified injury of head, initial encounter (principal); W22.8XXA Striking against or struck by other objects, initial encounter; Z87.891 Personal history of nicotine dependence; Z79.899 Other long term (current) drug therapy; Z88.0 Allergy status to penicillin
CPT/HCPCS: 70450; 99283-25

== ENCOUNTER → 2025-06-01 | Outpatient (CLI) | payer OTHER ==
[2025-06-04 08:33] LABS: HEPATITIS B SURFACE ANTIBODY <3.10 IU/L
[2025-06-04 14:48] LABS: HIV 1,2 COMBO ANTIGEN/ANTIBODY Negative (Negative)
[2025-06-04 17:59] LABS: HEPATITIS C AB CIA INTERP Negative (Negative); HEPATITIS C ANTIBODY CIA INDEX 0.03 IV
[2025-06-05 16:10] LABS: HSV SUBTYPE SOURCE Blood
== END ==
LOC: LAB 18:05 → LAB SHORT 18:05
PROVIDERS: General Practice
DX: Z11.3 Encounter for screening for infections with a predominantly sexual mode of transmission (principal)
CPT/HCPCS: 86592; 86803; 87389; 87529